=== PATIENT | female | born 1950 | race Caucasian/White ===

== ENCOUNTER 2025-04-07 15:22 | Outpatient (CLI) | payer SELFPAY ==
[2025-04-07 11:53] LABS: Abs Immature Grans 0.02 10^3/uL (0.0-0.06); HCT 41.6 % (36.0-46.0); HGB 13.5 g/dL (11.2-15.7); Immature Grans % 0.2 %; MCH 28.5 pg (27.0-33.0); MCHC 32.5 % (32.0-36.0); MCV 88 fL (80-95); MPV 10.9 fL (8.0-11.0); Platelet Count 282 10^3/uL (130-400); RBC 4.74 10^6/uL (3.93-5.22); RDW 13.9 % (11.7-14.6); RDW-SD 45.1 fL; WBC 8.06 10^3/uL (4.4-10.8)
[2025-04-07 12:32] LABS: ALT 24 U/L (14-59); AST 15 U/L (15-37); Albumin 3.6 g/dL (3.4-5.0); Alkaline Phosphatase 115 U/L (46-116); Anion Gap 8.5 mmol/L (3-11); BUN 14 mg/dL (7-18); Bilirubin, Total 0.5 mg/dL (0.2-1.0); CO2 30.5 mmol/L (21.0-32.0); Calcium 9.2 mg/dL (8.5-10.1); Chloride 103 mmol/L (98-107); Estimated GFR 58.02 (mL/min/1.73m2); Glucose 63 mg/dL (74-106); Potassium 4.1 mmol/L (3.5-5.1); Sodium 142 mmol/L (136-145); Total Protein 7.3 g/dL (6.4-8.2); Vitamin D 25 Total 46 ng/mL (30-100)
== END 2025-04-07 15:23 | disposition home or self-care (01) ==
LOC: LBO 15:23
PROVIDERS: Visit Provider Nurse Practitioner Family
DX: Z79.811 Long term (current) use of aromatase inhibitors (principal)
CPT/HCPCS: 36415; 80053; 82306; 85025